=== PATIENT | female | born 2000 | race Caucasian/White ===

== ENCOUNTER 2023-09-08 13:51 | Emergency (ER) | payer OTHER ==
[~2023-09-08] VITALS: Ht 165.1 cm; Wt 72.7 kg
[~2023-09-08 13:51] MED LIST: IBU600 MG PO; MIRENA52 MG IY; MULTI VITAMINS1 TAB PO; NATURAL IRON65 MG; PRENATAL; PROZAC40 MG PO; ROXICODONE 55 MG/TAB PO; TAMIFLU 75MG75 MG PO; XYZAL5 MG PO; ZOFRAN ODT4 MG PO; ZOLOFT 100MG100 MG PO
[2023-09-08] MEDS ORDERED: Ibuprofen 400 MG TAB PO ONE (15:00)
[2023-09-08 15:40] VITALS: BP 130/76; PULSE 77; TEMP 98
== END 2023-09-08 15:20 | disposition home or self-care (01) ==
LOC: COL.ER 13:51
DX: S90.32XA Contusion of left foot, initial encounter (principal); W20.8XXA Other cause of strike by thrown, projected or falling object, initial encounter